=== PATIENT | male | born 1970 | race Caucasian/White ===

== ENCOUNTER 2021-11-29 05:33 | Emergency (ER) | payer MEDICARE, MEDICAID ==
[2021-11-29] MEDS ORDERED: Ketorolac 30 MG/ML SDV IVPUSH ONE (06:06)
[2021-11-29] MEDS ORDERED: Ondansetron 4 MG Tab.DIS PO ONE (08:44)
== END 2021-11-29 13:09 | disposition home or self-care (01) ==
LOC: JP.ED 05:33
DX: R07.89 Other chest pain (principal); R03.0 Elevated blood-pressure reading, without diagnosis of hypertension; I25.10 Atherosclerotic heart disease of native coronary artery without angina pectoris; I25.2 Old myocardial infarction; J45.909 Unspecified asthma, uncomplicated; Z72.0 Tobacco use; Z88.0 Allergy status to penicillin
CPT/HCPCS: 36415; 80053; 80307; 84484; 85025; 93005; 96374; 99285; J1885; Q0162

== ENCOUNTER 2022-03-10 12:29 | Emergency (ER) | payer MEDICARE, MEDICAID | END 2022-03-10 14:50 | disposition home or self-care (01) | LOC: JP.ED 12:29 | DX: F10.10 Alcohol abuse, uncomplicated (principal); I25.10 Atherosclerotic heart disease of native coronary artery without angina pectoris; I25.2 Old myocardial infarction; F17.210 Nicotine dependence, cigarettes, uncomplicated; Z86.16 Personal history of COVID-19; Z88.0 Allergy status to penicillin; Z20.822 Contact with and (suspected) exposure to COVID-19 | CPT/HCPCS: 36415; 80305-QW; 80307; 99282; 99284; U0002 ==

== ENCOUNTER 2024-06-08 12:16 | Inpatient (IN) | payer MEDICARE, MEDICAID ==
[2024-06-08] MEDS: Ondansetron 4 MG/2 ML SDV IVPUSH ONE (13:16)
[2024-06-08] MEDS: Morphine 2 MG/ML SYRINGE IVPUSH ONE (13:16)
[2024-06-08] MEDS: Sodium Chloride 0.9% 1,000 ML IV SCH (13:17)
[2024-06-08 13:18] LABS: BASOPHILS PERCENT AUTO 0.5 % (0.1-1.3); EOSINOPHILS PERCENT AUTO 0.2 % (0.0-5.4); HEMATOCRIT 43.1 % (38.4-49.7); HEMOGLOBIN 15.8 g/dL (12.9-16.9); IMMATURE GRAN PERCENT AUTO 0.2 % (0.0-0.7); LYMPHOCYTES ABSOLUTE AUTO 1.34 K/uL (0.8-3.3); LYMPHOCYTES PERCENT AUTO 30.2 % (11.4-47.7); MEAN CORPUSCULAR HEMOGLOBIN 32.2 pg (31.6-35.5); MEAN CORPUSCULAR HGB CONC 36.7 g/dL (31.6-35.5); MONOCYTES ABSOLUTE AUTO 0.97 K/uL (0.20-0.90); MONOCYTES PERCENT AUTO 21.8 % (3.3-12.6); NEUTROPHILS ABSOLUTE AUTO 2.09 K/uL (1.0-7.6); NEUTROPHILS PERCENT AUTO 47.1 % (40.0-78.1); PLATELET COUNT,PLT 200 K/uL (130-375); WHITE BLOOD CELL COUNT,WBC 4.4 K/uL (3.2-11.0)
[2024-06-08 13:20] LABS: BASOPHILS ABSOLUTE AUTO 0.02 K/uL (0.00-0.10); EOSINOPHILS ABSOLUTE AUTO 0.01 K/uL (0.00-0.40); IMMATURE GRAN ABSOLUTE AUTO 0.01 K/uL (0.00-0.23)
[2024-06-08 13:54] LABS: A/G RATIO 0.9 (1.2-2.2); ALANINE AMINOTRANSFERASE,ALT 20 U/L (12-78); ALBUMIN 3.2 g/dL (3.4-5.0); ALKALINE PHOSPHATASE 97 U/L (46-116); ANION GAP 17.7 mmol/L (5.0-14.0); ASPARTATE AMNIOTRANSFERASE,AST 13 U/L (15-37); BILIRUBIN TOTAL 0.5 mg/dL (0.2-1.0); BLOOD UREA NITROGEN,BUN 34 mg/dL (7-18); C-REACTIVE PROTEIN 1.15 mg/dL (<0.50); CALCIUM 8.6 mg/dL (8.5-10.1); CARBON DIOXIDE,CO2 26 mmol/L (21-32); CHLORIDE,CL 94 mmol/L (100-108); CREATININE 1.5 mg/dL (0.8-1.3); EST CRCL DRUG DOSING (CG) 68.85 mL/min; ESTIMATED GFR 56 mL/min (>60); GLUCOSE RANDOM 118 mg/dL (74-106); POTASSIUM,K 3.7 mmol/L (3.6-5.2); PROTEIN TOTAL,TP 6.9 g/dL (6.4-8.2); SODIUM,NA 134 mmol/L (140-148)
[2024-06-08] MEDS: Iopamidol 612 MG/ML 100 ML Bottle IV SCH (14:08)
[2024-06-08] MEDS: Sodium Chloride 0.9% 100 ML IV SCH (14:08)
[2024-06-08] MEDS: Sodium Chloride 0.9% 10 ML Syringe FLUSH ONE (14:08)
[2024-06-08 15:22] LABS: APPEARANCE,URINE CLEAR (CLEAR); BILIRUBIN,URINE NEGATIVE (NEGATIVE); COLOR,URINE YELLOW (YELLOW); GLUCOSE,URINE NEGATIVE (NEGATIVE); KETONES,URINE 15 mg/dL (NEGATIVE); LEUKOCYTE ESTERASE,URINE NEGATIVE (NEGATIVE); NITRITE,URINE NEGATIVE (NEGATIVE); OCCULT BLOOD,URINE MODERATE (NEGATIVE); PROTEIN,URINE NEGATIVE (NEGATIVE)
[2024-06-08 15:23] LABS: AMPHETAMINES SCREEN, URINE NEGATIVE (NEGATIVE); BARBITURATE SCREEN,URINE NEGATIVE (NEGATIVE); BENZODIAZEPINES SCREEN,URINE NEGATIVE (NEGATIVE); METHADONE SCREEN, URINE NEGATIVE (NEGATIVE); METHAMPHETAMINES SCREEN, URINE NEGATIVE (NEGATIVE); OXYCODONE SCREEN,URINE NEGATIVE (NEGATIVE); PROPOXYPHENE SCREEN,URINE NEGATIVE (NEGATIVE); THC SCREEN,URINE 50 NG/ML NEGATIVE (NEGATIVE)
[2024-06-08 15:25] LABS: AMORPHOUS SEDIMENT,URINE NOT SEEN; BACTERIA,URINE NOT SEEN; EPITHELIAL CELLS,URINE RARE; MUCUS,URINE NOT SEEN; RBC,URINE 20-30 (0-5); WBC,URINE 0-5 (0-5)
[2024-06-08] MEDS ORDERED: Rocuronium 50 MG/5 ML Vial ONE (16:16)
[2024-06-08] MEDS ORDERED: Neostigmine Methylsulfate 10 MG/10 ML MDV ONE (16:16)
[2024-06-08] MEDS ORDERED: Succinylcholine 200 MG/10 ML MDV ONE (16:16)
[2024-06-08] MEDS ORDERED: Propofol 200 MG/20 ML SDV ONE (16:16)
[2024-06-08] MEDS ORDERED: Ondansetron 4 MG/2 ML SDV ONE (16:16)
[2024-06-08] MEDS ORDERED: fentaNYL 250 MCG/5 ML SDV ONE (16:16)
[2024-06-08] MEDS ORDERED: Glycopyrrolate 0.2 MG/ML 5 ML MDV ONE (16:16)
[2024-06-08] MEDS ORDERED: Dexamethasone 4 MG/ML SDV ONE (16:16)
[2024-06-08] MEDS ORDERED: Acetaminophen/oxyCODONE 325-5 MG Tab PO PRN (16:18)
[2024-06-08] MEDS ORDERED: Morphine 2 MG/ML SYRINGE IVPUSH PRN (16:18)
[2024-06-08] MEDS ORDERED: Sodium Chloride 0.9% 1,000 ML IV SCH (16:30)
[2024-06-08] MEDS: ceFAZolin 2 GM in Premix Bag 1 BAG IV ONE (16:50)
[2024-06-08] MEDS ORDERED: Lactated Ringers 1,000 ML ONE (17:01)
[2024-06-08] MEDS ORDERED: fentaNYL 100 MCG/2 ML SDV ONE (17:49)
[2024-06-08] MEDS: Bupivacaine 0.5%/EPINEPHrine 1:200,000 50 ML MDV ONE (17:57)
[2024-06-08] MEDS: Dextrose 5%-Lactated Ringers 1,000 ML IV SCH (21:54)
[2024-06-08] MEDS: Formoterol/Mometasone 200-5 MCG 8.8 GM Inhaler IH SCH (22:22)
[2024-06-09] MEDS ORDERED: Divalproex Sodium 250 MG Tab.ER PO SCH ×2 (08:00)
[2024-06-09 08:34] LABS: ANION GAP 14.9 mmol/L (5.0-14.0); CALCIUM 8.2 mg/dL (8.5-10.1); CREATININE 1.2 mg/dL (0.8-1.3); EST CRCL DRUG DOSING (CG) 78.94 mL/min; POTASSIUM,K 3.9 mmol/L (3.6-5.2)
[2024-06-09] MEDS ORDERED: Paliperidone 3 MG Tab.ER PO SCH ×2 (09:00)
[2024-06-09] MEDS: Divalproex Sodium Delayed-Release 250 MG Tab.CR PO SCH (09:24)
[2024-06-09] MEDS: Paliperidone 3 MG Tab.ER PO SCH (09:25)
[2024-06-09] MEDS: FLUoxetine 20 MG Cap PO SCH (09:26)
[2024-06-09] MEDS: Acetaminophen 325 MG Tab PO PRN ×2 (09:27→16:55)
[2024-06-09] MEDS: Acetaminophen 325 MG Tab ONE (09:48)
[2024-06-09] MEDS ORDERED: QUEtiapine 25 MG Tab PO PRN (10:29)
[2024-06-09] MEDS ORDERED: DIVALPROEX SODIUM 500 MG PO SCH (10:30)
[2024-06-09] MEDS ORDERED: PALIPERIDONE 9 MG PO SCH (10:30)
[2024-06-09] MEDS: atorvaSTATin 20 MG Tab PO SCH (11:24)
[2024-06-09] MEDS: Cetirizine 10 MG Tab PO SCH (11:24)
[2024-06-09] MEDS: Ondansetron 4 MG/2 ML SDV IVPUSH PRN ×2 (13:13→19:36)
[2024-06-09] MEDS ORDERED: Acetaminophen/oxyCODONE 325-5 MG Tab PO PRN (13:22)
[2024-06-09] MEDS ORDERED: Morphine 2 MG/ML SYRINGE IVPUSH PRN (13:28)
[2024-06-09] MEDS: Sodium Chloride 0.9% 500 ML IV ONE (16:42)
[2024-06-09] MEDS: QUEtiapine 100 MG Tab PO SCH (21:58)
[2024-06-10] MEDS: Magnesium Hydroxide 400 MG/5 ML Susp 30 ML Cup PO ONE (08:06)
[2024-06-10] MEDS: Bisacodyl 10 MG Supp RECTAL ONE (08:06)
[2024-06-10] MEDS ORDERED: Non-Formulary Medication 1 Each (Simvastatin [Simvastatin] 40 MG Tablet) PO SCH (09:00)
[2024-06-10] MEDS: Divalproex Sodium Delayed-Release 250 MG Tab.CR PO SCH (20:38)
== END 2024-06-12 13:20 | disposition home or self-care (01) | DRG 352 ==
LOC: JP.ED 12:16 → JP.SDS 16:30 → INTOOBSV 18:48 → JP.MS 18:48 → OBSVTOIN 06-10 07:11
PROVIDERS: ADMIT Surgery; ATTEND Surgery
PROC: 0YU60JZ Supplement Left Inguinal Region with Synthetic Substitute, Open Approach (ICD-10-PCS; principal; 2024-06-08 16:30)
DX: K40.30 Unilateral inguinal hernia, with obstruction, without gangrene, not specified as recurrent (principal); K56.609 Unspecified intestinal obstruction, unspecified as to partial versus complete obstruction; K66.0 Peritoneal adhesions (postprocedural) (postinfection); E78.00 Pure hypercholesterolemia, unspecified; I25.10 Atherosclerotic heart disease of native coronary artery without angina pectoris; J44.9 Chronic obstructive pulmonary disease, unspecified; I25.2 Old myocardial infarction; M19.90 Unspecified osteoarthritis, unspecified site; F32.A Depression, unspecified; F41.9 Anxiety disorder, unspecified; F20.9 Schizophrenia, unspecified; F10.10 Alcohol abuse, uncomplicated; F17.210 Nicotine dependence, cigarettes, uncomplicated; Z86.73 Personal history of transient ischemic attack (TIA), and cerebral infarction without residual deficits; Z88.0 Allergy status to penicillin; Z86.16 Personal history of COVID-19; Z91.018 Allergy to other foods; Z79.899 Other long term (current) drug therapy
CPT/HCPCS: 36415; 51702; 74177 ×2; 80053; 80305; 81001; 83605; 83690; 85025; 86140; 93005; 96361; 96374; 96375; 99285; C1781; J0330; J0690; J1100; J1596; J2270; J2405 ×2; J2704; J2710; J3010 ×2; J3490 ×3; J7030; J7120; Q9967; 00840-QZ; 74019; 74019-26; 80048; 93010; 94640; 96376; 99204; 99231; A9270-GY; G0378; J7040; J7121